=== PATIENT | female | born 1940 | race Caucasian/White ===

== ENCOUNTER 2020-07-04 01:36 | Inpatient (IN) | payer MEDICARE, OTHER ==
[~2020-07-04] VITALS: Ht 162.6 cm; Wt 73.9 kg
[~2020-07-04 01:36] MED LIST: ASPIR-LOW81 MG PO; ASPIRIN EC81 MG PO; BRILINTA 90 MG90 MG PO; BRILINTA90 MG PO; BUMEX 1MG TABLET1 MG GT; CLARITIN 10MG T10 MG PO; GLUCOPHAGE500 MG PO; HUMALOG MI100 UNIT/3 SQ; HYDROCHLOROTHIA25 MG PO; K-DUR TAB 20 M20 MEQ PO; LASIX 40 MG TAB40 MG PO; LEVAQUIN TAB 5500 MG PO; LIPITOR TAB 2020 MG PO; LOPRESSOR 25 MG25 MG PO; NORVASC10 MG PO; PROTONIX 40 MG40 M1 PO; PROZAC20 MG PO; PROZAC40 MG PO; ZESTORETIC 20-1 EAC1 PO
[2020-07-04 01:55] LABS: RED BLOOD COUNT 4.49 M/UL (4.00-5.10); WHITE BLOOD COUNT 16.4 K/UL (4.5-11.0)
[2020-07-04 02:19] LABS: BUN/CREATININE RATIO 32 (0-10)
[2020-07-04] MEDS ORDERED: IPRAT-ALBUT 0.5-3 ML INH (10:05)
[2020-07-04] MEDS ORDERED: COREG6.25 MG PO (10:05)
[2020-07-04] MEDS ORDERED: COLACE100 MG PO (10:05)
[2020-07-04] MEDS ORDERED: ALDACTONE 25MG25 MG PO (10:08)
[2020-07-04] MEDS ORDERED: LIPITOR40 MG PO (10:10)
[2020-07-04] MEDS ORDERED: ASPIRIN EC81 MG PO (10:11)
[2020-07-04] MEDS ORDERED: NITROSTAT0.4 MG SL (10:12)
[2020-07-04] MEDS ORDERED: ZESTRIL20 MG PO (10:13)
[2020-07-04] MEDS ORDERED: CYANOCOBAL1000 MCG/1 INJ (10:14)
[2020-07-04] MEDS ORDERED: VENTOLIN HFA 66.7 GM INH (10:16)
[2020-07-04] MEDS ORDERED: ACETAMINOPHEN325 MG PO (10:17)
[2020-07-05 03:54] LABS: HEMOGLOBIN 10.9 gm/dl (12.3-15.3); RED BLOOD COUNT 4.18 M/UL (4.00-5.10)
[2020-07-05 03:55] LABS: WHITE BLOOD COUNT 11.1 K/UL (4.5-11.0)
[2020-07-05 04:21] LABS: BUN/CREATININE RATIO 31 (0-10)
[2020-07-05] MEDS ORDERED: LASIX 40 MG TAB40 MG PO (10:46)
[2020-07-05] MEDS ORDERED: DOXYCYCLINE HY100 MG PO (10:46)
[2020-07-05] MEDS ORDERED: ADVAIR 250-501 EACH INH (10:50)
[2020-07-05] MEDS ORDERED: SPIRIVA HANDIH18 MCG INH (10:50)
--- NOTE | 2020-07-05 13:09 | NUR ---
REPORT CALLED TO NEEL AT [facility] TO RESUME PREVIOUS HH. MED CHANGES DISCUSSED.
[2020-10-10] MEDS ORDERED: HUMALOG MI100 UNIT/4 SC (02:15)
[2020-10-10] MEDS ORDERED: JANUVIA100 MG PO (08:37)
[2020-10-10] MEDS ORDERED: SINGULAIR10 MG PO (08:38)
== END 2020-07-05 15:21 | disposition home or self-care (01) | DRG 291 ==
LOC: ER1 01:36 → CDU 03:24 → PROG CARE 03:24 → MED SURG 4 19:38
PROVIDERS: Internal Medicine; ADMIT Internal Medicine
DX: I11.0 Hypertensive heart disease with heart failure (principal); J96.21 Acute and chronic respiratory failure with hypoxia; I50.43 Acute on chronic combined systolic (congestive) and diastolic (congestive) heart failure; I25.10 Atherosclerotic heart disease of native coronary artery without angina pectoris; J44.9 Chronic obstructive pulmonary disease, unspecified; E78.5 Hyperlipidemia, unspecified; Z20.822 Contact with and (suspected) exposure to COVID-19; E11.51 Type 2 diabetes mellitus with diabetic peripheral angiopathy without gangrene; F32.9 Major depressive disorder, single episode, unspecified; Z90.49 Acquired absence of other specified parts of digestive tract; I44.7 Left bundle-branch block, unspecified; K21.9 Gastro-esophageal reflux disease without esophagitis; Z88.0 Allergy status to penicillin; Z79.4 Long term (current) use of insulin; Z87.891 Personal history of nicotine dependence; Z95.5 Presence of coronary angioplasty implant and graft; Z99.81 Dependence on supplemental oxygen; Z88.6 Allergy status to analgesic agent; Z91.19 Patient's noncompliance with other medical treatment and regimen; I25.2 Old myocardial infarction; Z98.51 Tubal ligation status; Z82.49 Family history of ischemic heart disease and other diseases of the circulatory system; Z80.3 Family history of malignant neoplasm of breast; Z80.8 Family history of malignant neoplasm of other organs or systems; Z83.3 Family history of diabetes mellitus; Z79.82 Long term (current) use of aspirin; Z79.899 Other long term (current) drug therapy
CPT/HCPCS: 36415; 36600; 71045; 80053; 82550; 82553; 82803; 82962; 83874; 83880; 84484; 85025; 93005; 94640; 94660; 94760; 96374; 99285; J1650; J1940; U0002

== ENCOUNTER → 2020-08-28 | Outpatient (CLI) | payer MEDICARE, OTHER ==
[~2020-08-28] MED LIST changes: +ACETAMINOPHEN325 MG PO; +ADVAIR 250-501 EACH INH; +ALDACTONE 25MG25 MG PO; +BUMETANIDE1 MG PO; +COLACE100 MG PO; +COREG6.25 MG PO; +CYANOCOBAL1000 MCG/1 INJ; +DOXYCYCLINE HY100 MG PO; +ELIQUIS 5 MG TAB5 MG PO; +ENTRESTO 24 MG1 EACH PO; +HUMALOG MI100 UNIT/4 SC; +IPRAT-ALBUT 0.5-3 ML INH; +JANUVIA100 MG PO; +K-DUR TAB 10 M10 MEQ PO; +LASIX40 MG PO; +LIPITOR40 MG PO; +NITROSTAT0.4 MG SL; +OMNICEF 300 MG300 MG PO; +SINGULAIR10 MG PO; +SPIRIVA HANDIH18 MCG INH; +VENTOLIN HFA 66.7 GM INH; +ZESTRIL20 MG PO
== END ==
LOC: RT 16:29
DX: R09.02 Hypoxemia (principal); Z99.81 Dependence on supplemental oxygen
CPT/HCPCS: 36600; 82803

== ENCOUNTER → 2020-08-28 | Outpatient (CLI) | payer MEDICARE, OTHER | LOC: EXRD 14:22 | DX: J44.9 Chronic obstructive pulmonary disease, unspecified (principal) | CPT/HCPCS: 71046; 94060; 94729 ==

== ENCOUNTER 2020-10-10 11:59 | Inpatient (IN) | payer MEDICARE, OTHER ==
[~2020-10-10] VITALS: Ht 162.6 cm; Wt 76.2 kg
[~2020-10-10 11:59] MED LIST changes: -BUMETANIDE1 MG PO; -ELIQUIS 5 MG TAB5 MG PO; -ENTRESTO 24 MG1 EACH PO; -K-DUR TAB 10 M10 MEQ PO; -LASIX40 MG PO; -OMNICEF 300 MG300 MG PO
[2020-10-10] MEDS ORDERED: BUMETANIDE1 MG PO (15:01)
[2020-10-10] MEDS ORDERED: SPIRIVA HANDIH18 MCG INH (15:07)
[2020-10-10] MEDS ORDERED: K-DUR TAB 10 M10 MEQ PO (15:12)
[2020-10-10] MEDS ORDERED: LASIX40 MG PO (15:13)
[2020-10-10 15:42] LABS: HEMOGLOBIN 9.5 gm/dl (12.3-15.3); RED BLOOD COUNT 3.71 M/UL (4.00-5.10)
[2020-10-10 16:34] LABS: BUN/CREATININE RATIO 27 (0-10)
[2020-10-11 03:06] LABS: HEMOGLOBIN 9.7 gm/dl (12.3-15.3); RED BLOOD COUNT 3.71 M/UL (4.00-5.10)
[2020-10-11 03:07] LABS: WHITE BLOOD COUNT 10.2 K/UL (4.5-11.0)
[2020-10-12 04:46] LABS: HEMOGLOBIN 10.1 gm/dl (12.3-15.3); RED BLOOD COUNT 3.9 M/UL (4.00-5.10); WHITE BLOOD COUNT 11.6 K/UL (4.5-11.0)
[2020-10-13 05:41] LABS: HEMOGLOBIN 11.1 gm/dl (12.3-15.3); RED BLOOD COUNT 4.27 M/UL (4.00-5.10)
[2020-10-13] MEDS ORDERED: ENTRESTO 24 MG1 EACH PO (09:35)
[2020-10-13] MEDS ORDERED: BUMETANIDE1 MG PO (09:35)
[2020-10-13] MEDS ORDERED: ELIQUIS 5 MG TAB5 MG PO (09:35)
[2020-10-13] MEDS ORDERED: OMNICEF 300 MG300 MG PO (09:52)
== END 2020-10-13 11:03 | disposition home or self-care (01) | DRG 871 ==
LOC: CCU 13:44
PROVIDERS: Nurse Practitioner; ADMIT Internal Medicine
PROC: 5A09457 Assistance with Respiratory Ventilation, 24-96 Consecutive Hours, Continuous Positive Airway Pressure (ICD-10-PCS; principal; 2020-10-10)
DX: A41.9 Sepsis, unspecified organism (principal); J96.02 Acute respiratory failure with hypercapnia; I26.99 Other pulmonary embolism without acute cor pulmonale; I50.23 Acute on chronic systolic (congestive) heart failure; J18.9 Pneumonia, unspecified organism; I21.A1 Myocardial infarction type 2; J44.1 Chronic obstructive pulmonary disease with (acute) exacerbation; J44.0 Chronic obstructive pulmonary disease with (acute) lower respiratory infection; J96.11 Chronic respiratory failure with hypoxia; Z20.822 Contact with and (suspected) exposure to COVID-19; I25.10 Atherosclerotic heart disease of native coronary artery without angina pectoris; E11.9 Type 2 diabetes mellitus without complications; F41.9 Anxiety disorder, unspecified; D64.9 Anemia, unspecified; I25.5 Ischemic cardiomyopathy; I73.9 Peripheral vascular disease, unspecified; I44.7 Left bundle-branch block, unspecified; D72.829 Elevated white blood cell count, unspecified; I11.0 Hypertensive heart disease with heart failure; I65.29 Occlusion and stenosis of unspecified carotid artery; K21.9 Gastro-esophageal reflux disease without esophagitis; Z72.0 Tobacco use; Z98.51 Tubal ligation status; Z82.49 Family history of ischemic heart disease and other diseases of the circulatory system; Z79.4 Long term (current) use of insulin; Z86.73 Personal history of transient ischemic attack (TIA), and cerebral infarction without residual deficits; Z90.49 Acquired absence of other specified parts of digestive tract; Z99.81 Dependence on supplemental oxygen; Z80.3 Family history of malignant neoplasm of breast; Z80.8 Family history of malignant neoplasm of other organs or systems; Z83.3 Family history of diabetes mellitus; Z88.6 Allergy status to analgesic agent; Z88.0 Allergy status to penicillin
CPT/HCPCS: ECHO; 36415; 36600; 71045; 80053; 80061; 81001; 82550; 82553; 82803; 82962; 83036; 83605; 83735; 83880; 84100; 84484; 85025; 85379; 86140; 87040; 87081; 87205; 93005; 93306; 93970; 94660; 94760; J0692; J1650; J1940; J7040; Q9967; U0002

== ENCOUNTER → 2020-11-23 | Outpatient (CLI) | payer MEDICARE, OTHER ==
[~2020-11-23] MED LIST changes: +BUMETANIDE1 MG PO; +CLINDAMYCIN HC300 MG PO; +ELIQUIS 5 MG TAB5 MG PO; +ENTRESTO 24 MG1 EACH PO; +FLONASE 0.05% N16 GM; +HYDROCODON-ACE1 EAC4 PO; +K-DUR TAB 10 M10 MEQ PO; +LASIX40 MG PO; +LEVOFLOXACIN500 MG PO; +LISINOPRIL20 MG PO; +O2; +OMNICEF 300 MG300 MG PO; +OXYGEN; +POTASSIUM CHLO10 ME1 PO; +SPIRIVA18 MCG INH
[2020-11-23 11:29] LABS: HEMOGLOBIN 9.4 gm/dl (12.3-15.3); RED BLOOD COUNT 3.74 M/UL (4.00-5.10); WHITE BLOOD COUNT 10.6 K/UL (4.5-11.0)
== END ==
LOC: LAB 08:43
PROVIDERS: Internal Medicine Cardiovascular Disease
DX: I25.5 Ischemic cardiomyopathy (principal); I11.0 Hypertensive heart disease with heart failure; I50.22 Chronic systolic (congestive) heart failure; I44.7 Left bundle-branch block, unspecified
CPT/HCPCS: 36415; 80048; 85025

== ENCOUNTER 2020-11-27 06:19 | Outpatient (CLI) | payer MEDICARE, OTHER ==
[~2020-11-27] VITALS: Ht 160 cm; Wt 72.6 kg
[~2020-11-27 06:19] MED LIST changes: -CLINDAMYCIN HC300 MG PO; -FLONASE 0.05% N16 GM; -HYDROCODON-ACE1 EAC4 PO; -LEVOFLOXACIN500 MG PO; -LISINOPRIL20 MG PO; -O2; -OXYGEN; -POTASSIUM CHLO10 ME1 PO; -SPIRIVA18 MCG INH
[2020-11-27] MEDS ORDERED: IPRAT-ALBUT 0.5-3 ML INH (07:35)
[2020-11-27] MEDS ORDERED: ENTRESTO 24 MG1 EACH PO (07:40)
[2020-11-27] MEDS ORDERED: VENTOLIN HFA 66.7 GM INH (07:45)
[2020-11-27] MEDS ORDERED: LISINOPRIL20 MG PO (07:48)
[2020-11-27] MEDS ORDERED: POTASSIUM CHLO10 ME1 PO (07:49)
[2020-11-27] MEDS ORDERED: SPIRIVA18 MCG INH (07:50)
[2020-11-27] MEDS ORDERED: CLARITIN 10MG T10 MG PO (07:51)
[2020-11-27] MEDS ORDERED: FLONASE 0.05% N16 GM (07:51)
[2020-11-27] MEDS ORDERED: OXYGEN (08:10)
[2020-11-27] MEDS ORDERED: O2 (08:11)
[2020-11-27] MEDS ORDERED: LEVOFLOXACIN500 MG PO (11:48)
[2020-11-27] MEDS ORDERED: CLINDAMYCIN HC300 MG PO (11:48)
[2020-11-27] MEDS ORDERED: HYDROCODON-ACE1 EAC4 PO (11:48)
== END 2020-11-28 10:20 | disposition home or self-care (01) ==
LOC: CATH 06:19 → PROG CARE 06:19 → CATH 08:00 → PROG CARE 12:04 → CATH 11-28 10:20
DX: I25.5 Ischemic cardiomyopathy (principal); I11.0 Hypertensive heart disease with heart failure; I50.22 Chronic systolic (congestive) heart failure; I44.7 Left bundle-branch block, unspecified; I25.10 Atherosclerotic heart disease of native coronary artery without angina pectoris; I25.2 Old myocardial infarction; Z87.891 Personal history of nicotine dependence; F41.9 Anxiety disorder, unspecified; J44.9 Chronic obstructive pulmonary disease, unspecified; E78.00 Pure hypercholesterolemia, unspecified; E11.51 Type 2 diabetes mellitus with diabetic peripheral angiopathy without gangrene; Z88.0 Allergy status to penicillin; Z88.5 Allergy status to narcotic agent; Z20.822 Contact with and (suspected) exposure to COVID-19
CPT/HCPCS: 33225; 33249; 71045; 82962; 93005; 93641; 94664; 94760; 99152; 99153; C1769; C1777; C1882; C1898; C1900; J1200; J1265; J1644; J2250; J3010; J3370; J3420; J7040; J7050; J7070; Q9965